=== PATIENT | male | born 1980 | race Caucasian/White ===

== ENCOUNTER → 2023-11-01 08:05 | Outpatient (REF) | payer OTHER, SELFPAY | LOC: RAD 08:05 | PROVIDERS: ATTENDING PHYSICIAN Physician Assistant Medical | DX: R10.9 Unspecified abdominal pain (principal) | CPT/HCPCS: 76770 ==

== ENCOUNTER 2023-11-03 19:42 | Emergency (ER) | payer OTHER, SELFPAY ==
[2023-11-03 19:43] VITALS: BP 124/80
[2023-11-03 19:57] LABS: % Basophils 0.8 % (0-2); % Eosinophils 3.2 % (0-6); % Immature Granulocytes 0.4 % (0-0.5); % Lymphocytes 36.3 % (20.5-51.1); % Monocytes 6.8 % (1.7-9.3); % Neutrophils 52.5 % (42.2-75.2); Absolute Basophils 0.1 10^3/uL (0-0.2); Absolute Eosinophils 0.2 10^3/uL (0-0.7); Absolute Lymphocytes 2.7 10^3/uL (1.2-3.4); Absolute Monocytes 0.5 10^3/uL (0.1-0.6); Hematocrit 39.7 % (39.0-52.0); Hemoglobin 14.2 g/dL (13.0-18.0); Mean Corp Hgb Conc. 35.8 g/dL (33.0-37.0); Mean Corpuscular Hgb 29.5 pg (27.0-31.0); Mean Corpuscular Volume 82.5 fL (80.0-94.0); Mean Platelet Volume 9.2 fL (7.4-10.4); Nucleated Red Blood Cells % 0 % (-); Platelet Count 267 10^3/uL (130-400); Red Blood Cell Count 4.81 10^6/uL (4.70-6.10); Red Cell Dist. Width 12.3 % (11.5-14.5); White Blood Cell Count 7.5 10^3/uL (4.8-10.8)
[2023-11-03 20:03] LABS: Urine Albumin 2+ (Neg - Trace); Urine Bilirubin Negative (Negative); Urine Character Clear (Clear); Urine Glucose Negative (Negative); Urine Ketone Trace (Negative); Urine Leukocyte 1+ (Negative); Urine Nitrite Negative (Negative); Urine Occult Blood 4+ (Negative); Urine Specific Gravity 1.015 (<1.030); Urine Urobilinogen Negative (Neg - 1+)
[2023-11-03 20:04] LABS: Urine Color Pink
[2023-11-03 20:13] LABS: ALT (SGPT) 48 U/L (0-50); AST (SGOT) 29 U/L (17-59); Albumin 4.2 g/dl (3.5-5.0); Alkaline Phosphatase 83 U/L (38-126); Blood Urea Nitrogen 15 mg/dl (9-20); Calcium 9.3 mg/dl (8.4-10.2); Carbon Dioxide 25 mmol/L (22-30); Chloride 106 mmol/L (98-107); Glucose 134 mg/dl (70-99); Potassium 3.8 mmol/L (3.5-5.1); Sodium 141 mmol/L (135-145); Total Bilirubin 0.9 mg/dl (0.2-1.3); Total Protein 6.9 g/dl (6.3-8.2); eGFR > 60.00
[2023-11-03 20:25] LABS: Urine Red Blood Cell >100 /HPF (0-2)
[2023-11-03 20:30] VITALS: BP 145/91
[2023-11-03 21:00] VITALS: BP 142/81
[2023-11-03] MEDS: TORADOL 30 MG IV (21:30)
[2023-11-03 22:00] VITALS: BP 141/76
--- NOTE | 2023-11-03 23:00 | ED.GENMED ---
History of Present Illness
General
Chief Complaint: Flank Pain
Source: patient
Exam Limitations: none
Time Seen by Provider: 11/03/23 20:53
Nursing documentation reviewed up to this point in time: agreed with
Travel History
Have you had any contact with someone who has COVID-19?: No
Do you have any symptoms of coronavirus? Fever > 100 degrees, chills, cough, shortness of breath, sore throat, loss of taste or smell, muscle aches, or headache?: No
History of Present Illness
History of Present Illness:
Patient to ED with complaint of left flank pain. Has had pain for the past few weeks. Had outpatient US on saturday which revealed bilateral renal stones. Today left flank pain became worse. Brought to ED by spouse for eval. Has scheduled appt
with urology on Saturday. Denies fever/chills. +nausea, no vomiting.
Past History
Past History
ED Past Medical History: None
ED Past Surgical History: Orthopedic
Social History
Tobacco: Smoker (05/21 ppd)
Alcohol: Occasional
Personal:
Review of Systems
Review of Systems
Allergies reviewed?: Yes
All Other Systems: ROS reviewed and negative except as documented in HPI and ROS
Constitutional: Reports no symptoms
EENT: Reports no symptoms
Respiratory: Reports no symptoms
Cardiac: Reports no symptoms
ABD/GI: Reports no symptoms
: Reports flank pain (Left flank pain)
Musculoskeletal: Reports no symptoms
Skin: Reports no symptoms
Neurological: Reports no symptoms
Psychiatric: Reports no symptoms
Phy Exam
General Physical Exam
General Presentation: well appearing and mild distress
General age: appears stated age
General Skin: warm and dry
General Habitus: normal
General Mental: alert
Gastrointestinal Exam
Gastrointestinal Exam: normal bowel sounds, non tender, soft, no organomegaly, non distended and no cva tenderness
Musculoskeletal Exam
Musculoskeletal Exam: full ROM and neuro vasc intact
Skin Exam
Skin Exam: normal color, warm/dry and no rash
Psychiatric Exam
Psychiatric Exam: normal mood/affect
Course
Orders/Labs/Results
Orders:
Orders
11/03/23 19:51
CMP [Comprehensive Metabolic Panel] Urgent
Complete Blood Count/With Diff Urgent
11/03/23 19:55
Urinalysis Reflex To Culture Urgent
Date Specimen was Collected: 11/03/23
Time Specimen was Collected: 19:47
Urine Microscopic Reflex Cult Urgent
Urine Culture Urgent
VICKIE Source: U
Specimen Description:
Date Specimen was Collected: 11/03/23
Time Specimen was Collected: 19:47
11/03/23 21:00
CT Abd/pel Without Iv Or Oral Urgent
Comment:
Reason For Exam: flank pain
Oxycodone/Acetaminophen [Percocet 5/325] 1 tablet PO NOW STA
11/03/23 21:29
Ketorolac [Toradol] 30 mg .ROUTE .STK-MED ONE
11/03/23 21:30
Ketorolac [Toradol] 30 mg IV NOW STA
Abnormal Lab Results
11/03/23 11/03/23
19:51 19:55
Glucose 134 H mg/dl
(70-99)
Urine Ketones Trace A
(Negative)
Ur Occult Blood Reflex 4+ A
(Negative)
Leukocyte Esterase Rfl 1+ A
(Negative)
Urine RBC >100 A /HPF
(0-2)
Urine Albumin (Reflex) 2+ A
(Neg - Trace)
11/03/23 19:51
11/03/23 19:51
Vital Signs
Initial and Last Documented VS:
Initial Vital Signs
Temp Pulse Resp BP Pulse Ox
98.6 F 98 18 124/80 98
11/03/23 19:43 11/03/23 19:43 11/03/23 19:43 11/03/23 19:43 11/03/23 19:43
Last Documented Vital Signs
Temp Pulse Resp BP Pulse Ox
98.6 F 74 19 141/76 95
11/03/23 19:43 11/03/23 22:36 11/03/23 22:36 11/03/23 22:00 11/03/23 22:36
*Radiology
Radiology exam reviewed: radiology read reviewed
*Pulse Oximetry
Patient hypoxic: no
*Critical Care Note
Total Time (30-74mins, 75-104mins- exclusive of procedures): Not Applicable
ED Attending Note
-
Portions of this chart may have been created with voice recognition software.� Occasional wrong word or��sound alike� substitutions may have occurred due to the inherent limitations of voice recognition software.
Discharge Plan
Departure
Patient Disposition: Home (Routine Discharge)
Date of Disposition: 11/03/23
Time of Disposition: 22:33
Patient with high blood pressure during this ER visit?: No
Condition: Good
Covid-19: Not Applicable
Discharge Problem:
Kidney stone
Instructions: Kidney Stones (DC), How to Strain Your Urine, Narcotic Pain Medication
Prescriptions:
New
hydrocodone-acetaminophen 5-325 mg tablet
1 tab PO Q4H PRN (Reason: Pain) Qty: 10 0RF
ondansetron 4 mg tablet,disintegrating
4 mg PO Q4H PRN (Reason: nausea and vomiting) Qty: 10 0RF
Referrals:
Robert Esquivel PA-C [Family Provider] -
Activity Restrictions/Additional Instructions:
Follow up with your urologist on Saturday as scheduled. Return to the emergency department immediately for any changes in/worsening of your symptoms.
Interventions
Interventions:
*Risk Screen - Suicide Last Done: 11/03/23 20:31
*General Assessment Last Done: 11/03/23 20:31
*Neglect/Abuse Screening Last Done: 11/03/23 20:31
ED- Fall Risk Assessment Last Done: 11/03/23 20:32
*ED COVID-19 Vaccine History Last Done: 11/03/23 20:31
*Nursing Disposition Last Done: 11/03/23 22:48
CT-Boizia-Pdwgbpsrjx Assessment Last Done: 11/03/23 20:32
ED-Male Genitourinary Assessment Last Done: 11/03/23 20:32
Discharge Date and Time
Discharge Date/Time: 11/03/23 22:49
Print Language: BULGARIAN
== END 2023-11-03 22:49 | disposition home or self-care (01) ==
LOC: EMR 19:42
PROVIDERS: Emergency Medicine; EMERGENCY PHYSICIAN Emergency Medicine; FAMILY PHYSICIAN Physician Assistant Medical
DX: N20.0 Calculus of kidney (principal); F17.210 Nicotine dependence, cigarettes, uncomplicated
CPT/HCPCS: 99284; 96374; 74176; 80053; 81003; 81015; 85025; 87086